=== PATIENT | female | born 1950 | race Hispanic/Latino ===

== ENCOUNTER → 2024-11-12 | Outpatient (REF) | payer MEDICARE ==
[~2024-11-12] MED LIST: ASPIRIN81 MG PO; CLARITIN10 MG PO
[2024-11-12 10:42] LABS: BASOPHILS # (AUTO) 0.1 (0.0-0.1); BASOPHILS % 0.9 % (0.0-1.0); EOSINOPHILS # (AUTO) 0.3 (0.0-0.4); EOSINOPHILS % 4.2 % (0.0-6.0); HEMOGLOBIN 11.3 g/dL (12.0-16.0); LYMPHOCYTES % 30.7 % (18.0-39.1); MEAN CORPUSCULAR HEMOGLOBIN 24.1 pg (28-32); MEAN CORPUSCULAR HGB CONC 31.4 g/dL (31-35); MEAN CORPUSCULAR VOLUME 76.9 fL (81-99); MONOCYTES # (AUTO) 0.6 (0.2-0.8); MONOCYTES % 9.9 % (4.4-11.3); NEUTROPHILS # (AUTO) 3.5 (2.1-6.9); PLATELET COUNT 282 x10e3/uL (140-360); RED BLOOD COUNT 4.68 x10e6/uL (3.6-5.1); RED CELL DISTRIBUTION WIDTH 19.1 % (11.7-14.4); WHITE BLOOD COUNT 6.46 x10e3/uL (4.8-10.8)
== END ==
LOC: LAB 06:00 → EDSTATUS 11-19 10:00
PROVIDERS: ATTEND Internal Medicine Gastroenterology
DX: Z01.810 Encounter for preprocedural cardiovascular examination (principal); Z01.812 Encounter for preprocedural laboratory examination; D50.9 Iron deficiency anemia, unspecified; Z86.0100 Personal history of colon polyps, unspecified; E78.00 Pure hypercholesterolemia, unspecified
CPT/HCPCS: 36415; 85025; 93005